=== PATIENT | male | born 1995 | race Caucasian/White ===

== ENCOUNTER 2022-09-29 16:34 | Emergency (ER) | payer SELFPAY ==
[~2022-09-29] VITALS: Ht 167.6 cm; Wt 77.0 kg
[2022-09-29 16:45] VITALS: BP 128/83
[2022-09-29 17:29] LABS: BASOPHILS % 0.6 % (0.0-2.0); EOSINOPHILS % 1.4 % (0.0-5.0); HEMATOCRIT. 42.1 % (42.0-52.0); HEMOGLOBIN. 14.8 g/dL (14.0-18.0); LYMPHOCYTES % 32.8 % (20.0-50.0); MEAN CORPUSCULAR HEMOGLOBIN 32.6 pg (28.0-32.0); MEAN CORPUSCULAR VOLUME 92.7 fL (80.0-94.0); MEAN PLATELET VOLUME 7.5 fl (7.4-10.4); MONOCYTES % 6.1 % (2.0-8.0); NEUTROPHILS % 59.1 % (40.0-76.0); PLATELET 323 x1000/uL (130-400); RED BLOOD CELL COUNT 4.54 mill/uL (4.7-6.1); RED CELL DISTRIBUTION WIDTH 12.5 % (11.6-14.6)
[2022-09-29 17:36] LABS: CHLORIDE 109 mEq/L (98-107)
[2022-09-29 17:39] LABS: BG BASE EXCESS -1.9 mmol/L (-2.0-2.0); BG CARBOXYHEMOGLOBIN 0.8 % (0.5-1.5); BG DEOXYHEMOGLOBIN 3.7 % (0.0-5.0); BG FRACTION INSPIRED OXYGEN 21; BG METHEMOGLOBIN 0.5 % (0.0-1.5); BG OXYGEN SATURATION 96.3 % (92.0-98.5); BG PCO2 35.2 mmHg (35.0-45.0); BG PH 7.414 (7.350-7.450); BG SAMPLE SITE LEFT BRACHIAL; BG TOTAL HEMOGLOBIN 15.2 g/dL (12.0-18.0); BG VENT MODE RESUS BAG
[2022-09-29 17:45] LABS: CREATINE KINASE 280 IU/L (39-308)
== END 2022-09-29 18:23 | disposition home or self-care (01) ==
LOC: ER 16:34
DX: T75.4XXA Electrocution, initial encounter (principal); W86.8XXA Exposure to other electric current, initial encounter; Y93.01 Activity, walking, marching and hiking; Y92.89 Other specified places as the place of occurrence of the external cause; Y99.8 Other external cause status
CPT/HCPCS: 36415; 36600; 80053; 82375; 82550; 82805; 84484; 85025; 93005; 99284